=== PATIENT | male | born 1960 | race Caucasian/White ===

== ENCOUNTER 2019-07-12 19:05 | Emergency (ER) | payer OTHER ==
[~2019-07-12] VITALS: Ht 190.5 cm; Wt 108.9 kg
[~2019-07-12 19:05] MED LIST: IBUPROFEN 200200 M1 PO; KEFLEX500 MG PO; NOHOMEMEDICATIONS; OXYCODONE HCL5 MG PO
[2019-07-12] MEDS ORDERED: KEFLEX500 M1 PO (23:09)
[2019-07-12] MEDS ORDERED: NORCO 5-325 TA1 EAC1 PO (23:09)
[2019-07-12 23:18] VITALS: BP 162/94
== END 2019-07-12 23:19 | disposition home or self-care (01) ==
LOC: ER 19:05
DX: S01.412A Laceration without foreign body of left cheek and temporomandibular area, initial encounter (principal); F17.210 Nicotine dependence, cigarettes, uncomplicated; W22.8XXA Striking against or struck by other objects, initial encounter; Y93.89 Activity, other specified; Y92.89 Other specified places as the place of occurrence of the external cause; Y99.8 Other external cause status